=== PATIENT | female | born 1980 | race Caucasian/White ===

== ENCOUNTER 2019-09-12 06:29 | Day surgery (SDC) | payer OTHER ==
[~2019-09-12] VITALS: Ht 162.6 cm; Wt 118.4 kg
[2019-09-12] MEDS ORDERED: fentaNYL 0.05 MG/ML VIAL ONE (07:39)
[2019-09-12] MEDS ORDERED: MIDAZOLAM 2 MG/2 ML VIAL ONE (07:40)
[2019-09-12] MEDS ORDERED: MIDAZOLAM 2 MG/2 ML VIAL IVP ONE (08:30)
== END 2019-09-12 08:52 | disposition home or self-care (01) ==
LOC: MTU 06:29 → MOR 06:29
PROVIDERS: ATTEND Internal Medicine Gastroenterology
DX: R10.13 Epigastric pain (principal); K31.7 Polyp of stomach and duodenum; K22.70 Barrett's esophagus without dysplasia; K44.9 Diaphragmatic hernia without obstruction or gangrene; E66.01 Morbid (severe) obesity due to excess calories; Z88.0 Allergy status to penicillin; Z79.899 Other long term (current) drug therapy; Z68.44 Body mass index [BMI] 60.0-69.9, adult
CPT/HCPCS: 43239; 88305; 88312; 88313; J2250; J3010

== ENCOUNTER 2022-04-07 12:58 | Inpatient (IN) | payer OTHER ==
[~2022-04-07] VITALS: Ht 162.6 cm; Wt 88.5 kg
[2022-04-07 13:29] LABS: BASOPHILS % (AUTO) 0.6 % (0.0-2.0); EOSINOPHILS # (AUTO) 0.2 K/uL (0-0.4); EOSINOPHILS % (AUTO) 2.5 % (0.0-4.0); HEMATOCRIT 36.9 % (36-48); HEMOGLOBIN 12.5 g/dL (12.0-16.0); LYMPHOCYTES # (AUTO) 2.5 K/uL (2.5-16.5); LYMPHOCYTES % (AUTO) 37.9 % (20.5-51.1); MEAN CORPUSCULAR HEMOGLOBIN 32 pg (27-31); MEAN CORPUSCULAR HGB CONC 34 g/dL (33-37); MONOCYTES # (AUTO) 0.5 K/uL (0.8-1.0); MONOCYTES % (AUTO) 7.4 % (1.7-9.3); NEUTROPHILS # (AUTO) 3.5 K/uL (1.8-7.7); NEUTROPHILS % (AUTO) 51.6 % (42.2-75.2); PLATELET COUNT (AUTO) 368 K/uL (140-450); RED BLOOD CELL COUNT(AUTO) 3.93 MIL/uL (4.20-5.40); RED CELL DISTRIBUTION WIDTH 13.5 % (11.6-13.7); WHITE BLOOD COUNT (AUTO) 6.7 K/uL (4.8-10.8)
[2022-04-07 13:43] LABS: ANION GAP 13.6 (8-16); CREATININE 0.5 mg/dL (0.6-1.3); POTASSIUM 3.6 mmol/L (3.5-5.1)
[2022-04-07] MEDS ORDERED: LIDOCAINE/EPI MPF 1%1:200000 30 ML VIAL INJ ONE (14:54)
[2022-04-07] MEDS ORDERED: DEXAMETHASONE 4 MG/ML VIAL ONE (15:29)
[2022-04-07] MEDS ORDERED: KETOROLAC 30 MG/ML VIAL ONE (15:29)
[2022-04-07] MEDS ORDERED: PROPOFOL 200 MG/20 ML VIAL IV ONE (15:29)
[2022-04-07] MEDS ORDERED: SUCCINYLCHOLINE CHLORIDE 200 MG/10 ML VIAL IVP ONE (15:29)
[2022-04-07] MEDS ORDERED: ONDANSETRON 4 MG/2 ML VIAL ONE (15:29)
[2022-04-07] MEDS ORDERED: ROCURONIUM 50 MG/5 ML VIAL IV ONE ×2 (15:29→18:16)
[2022-04-07] MEDS ORDERED: MIDAZOLAM 2 MG/2 ML VIAL ONE (15:30)
[2022-04-07] MEDS ORDERED: DESFLURANE 240 ML BTL INH ONE (16:30)
[2022-04-07] MEDS ORDERED: fentaNYL citrate 0.05 MG/ML VIAL ONE (16:45)
[2022-04-07] MEDS ORDERED: CLINDAMYCIN 900 MG/6 ML VIAL IV ONE (16:48)
[2022-04-07] MEDS ORDERED: BUPIVACAINE-MPF 0.25% 30 ML VIAL INJ ONE (17:05)
[2022-04-07] MEDS ORDERED: HYDROmorphone PFS 2 MG/ML SYR ONE ×2 (17:16→18:41)
[2022-04-07] MEDS ORDERED: SUGAMMADEX SODIUM 200 MG/2 ML VIAL IV ONE (20:30)
[2022-04-07] MEDS ORDERED: ONDANSETRON 4 MG/2 ML VIAL IVP PRN (20:55)
[2022-04-07] MEDS ORDERED: MORPHINE SULFATE 5 MG/ML VIAL IVP PRN (20:55)
[2022-04-07] MEDS ORDERED: diphenhydrAMINE 50 MG/ML VIAL IVP PRN (20:55)
[2022-04-07] MEDS ORDERED: HYDROmorphone 1 MG/ML AMP IVP PRN (20:55)
[2022-04-07] MEDS ORDERED: oxyCODONE/APAP 5/325 MG 1 TAB TAB PO PRN (20:55)
[2022-04-07 21:55] VITALS: BP 118/64
--- NOTE | 2022-04-07 21:55 | NUR ---
RECEIVED REPORT FROM OR NURSE, PATIENT IS LYING ON BED, PATIENT IS STILL IN UNDER ANESTHESIA , PATIENT IS NON VARIBEL AT THIS TIME, VITAL SIGN IS WITHIN THE NORMAL RANGE ,NO ACTIVE BLEEDING FROM SURGERY SITE ,CALL LIGHT IS WITHIN THE REACH ,WILL CONTINUE TO MONITOR PATIENT,
[2022-04-07] MEDS: ONDANSETRON 4 MG/2 ML VIAL IVP PRN (22:20)
--- NOTE | 2022-04-07 22:23 | NUR ---
PATIENT IS COMPLAINING OF NAUSEA , ZOFRAN IV PRN GIVEN PER DOCTOR ORDER, CALL LIGHT IS WITHIN THE REACH , WILL CONTINUE TO MONITOR PATIENT
--- NOTE | 2022-04-07 22:35 | NUR ---
spoke with dr perla, pt on topiramate 100mg twice a day and Aptiom 400mg daily at night, per Dr Perla to continue meds.policy writer typist already ordered topiramate, phone call made to pharmacy , spoke with Mahendra, he said we don't carry that medication and to order non formulary for that said medication but it wont be verified by him tonight, it will be the hospital pharmacist.spoke with pt and pts family who is still at bedside that we dont carry Aptiom and to bring the medication in am.she said ok.
[2022-04-07] MEDS: LACTATED RINGERS 1,000 ML IV SCH (23:16)
--- NOTE | 2022-04-07 23:40 | NUR ---
VERIFIED TO [facility] : PT IS MS PT.- ACCORDING TO DR. HUDDLESTON .
[2022-04-08] MEDS: KETOROLAC 30 MG/ML VIAL IVP SCH ×4 (00:52→18:01)
--- NOTE | 2022-04-08 01:02 | NUR ---
PATIENT IS LYING ON BED,PATIENT IS COMPLAINING OF PAIN AT SURGERY SITE, SCHEDULE PAIN MEDICATION IS GIVEN PER DOCTOR ORDER, VITAL SIGN IS WITHIN THE NORMAL RANGE,CALL LIGHT IS WITHIN THE REACH, WILL CONTINUE TO MONITOR PATIENT.
--- NOTE | 2022-04-08 01:14 | NUR ---
RECEIVED REPORT FROM ER NURSE PAT, PATIENT IS LYING ON BED,PATIENT IS ALERT ORIENTED X4 ,PATIENT SPEAK KAZAKH, CALL LIGHT IS WITHIN THE REACH,WILL CONTINUE TO MONITOR PATIENT. Addendum: 04/08/22 at 0118 by Elizabeth Farley RN DOCUMENTS IN WRONG PATIENT
[2022-04-08] MEDS: oxyCODONE/APAP 5/325 MG 1 TAB TAB PO PRN ×2 (03:22→10:22)
--- NOTE | 2022-04-08 03:28 | NUR ---
PATIENT IS COMPLAINING OF PAIN 6/10 , GAVE OXYCODONE 5/325 MG PO PRN PER DOCTOR ORDER, VITAL SIGN IS WITHIN THE NORMAL RANGE, CALL LIGHT IS WITHIN THE REACH,WILL CONTINUE TO MONITOR PATIENT.
--- NOTE | 2022-04-08 03:38 | NUR ---
APTIOM 400MG ( PT'S MED FOR S2 ) WILL TELL TO ATUL TO ENDORSE IT TO AM NURSE AND IN HOUSE PHARMACIST
[2022-04-08 04:00] VITALS: BP 107/64
--- NOTE | 2022-04-08 04:40 | NUR ---
PATIENT IS LYING ON BED, NO ANY COMPLAIN OF PAIN OR SHORTNESS OF BREATH AT THIS TIME, VITAL SIGN IS WITHIN THE NORMAL RANGE, CALL LIGHT IS WITHIN THE REACH,WILL CONTINUE TO MONITOR PATIENT.
[2022-04-08] MEDS: LACTATED RINGERS 1,000 ML IV SCH ×3 (05:16→18:50)
--- NOTE | 2022-04-08 06:23 | NUR ---
PATIENT IS LYING ON BED, ALL SCHEDULE MEDICATION IS GIVEN PER DOCTOR ORDER, VITAL SIGN IS WITHIN THE NORMAL RANGE, CALL LIGHT IS WITHIN THE REACH,WILL CONTINUE TO MONITOR PATIENT.
--- NOTE | 2022-04-08 06:44 | NUR ---
PATIENT HAS BEEN SCREENED AND CATEGORIZED HIGH NUTRITION RISK. PATIENT WILL BE SEEN WITHIN 1-2 DAYS OF ADMISSION. 04/08/22-04/09/22 MICAH JO MS, RDN
--- NOTE | 2022-04-08 07:10 | NUR ---
RECEIVED REPORT FROM TIRE CORD WEAVER NURSE FOR CONTINUITY OF CARE. PATIENT AWAKE NO DISTRESS NOTED. IV SITE ON RIGHT HAND LY 20 RUNNING LR AT 150.. PATIENT ALERT AND ORIENTED. RESPIRATION EVEN AND NOT LABORED NO SHORTNESS OF BREATH ON ROOM AIR. VILLATORO CATHETER DRAINING WELL WITH YELLOW URINE NO HEMATURIA. ALL SAFETY MEASURE IN PLACE.
--- NOTE | 2022-04-08 07:14 | NUR ---
GAVE REPORT TO MORNING NURSE DESIRAE FOR CONTINUOS OF CARE, PATIENT IS STABLE.
--- NOTE | 2022-04-08 08:00 | NUR ---
Patient's Plan of Care was discussed and reviewed with CUCA Muse
[2022-04-08] MEDS: TOPIRAMATE 100 MG TAB PO SCH ×2 (09:12→21:11)
--- NOTE | 2022-04-08 09:12 | NUR ---
GIVEN ORAL MEDICATION TOLERATED WELL.
--- NOTE | 2022-04-08 10:22 | NUR ---
PATIENT COMPLAIN 9/10 ABDOMINAL PAIN MEDICATED WITH PERCOCET 2 TABS. CALL LIGHT WITH IN EASY REACH.
--- NOTE | 2022-04-08 10:46 | NUR ---
LEFT MESSAGE TO DR. HUDDLESTON IF PATIENT CAN HAVE HER HOME MEDICATION ESPECIALLY HER SEIZURE MEDICATION. WAITING FOR RESPONSE.
--- NOTE | 2022-04-08 11:09 | NUR ---
(04/08/22) RD INITIAL ASSESSMENT COMPLETED PLEASE REFER TO NUTRITION ASSESSMENT UNDER CARE ACTIVITY FOR ESTIMATED NUTRITIONAL NEEDS. RD RECOMMENDATIONS: 1. CONTINUE ON REGULAR DIET TOLERATED. 2. RDN ADDED HEALTH SHAKES 1 CARTON WITH EACH MEAL; 900 KCAL AND [address] WILL F/U 3-5 DAYS; MODERATE RISK. MICAH JO MS, RDN
--- NOTE | 2022-04-08 11:24 | NUR ---
DR. HUDDLESTON RESPONDED AND HE SAID OKAY TO TAKE ALL HOME MEDICATION.
[2022-04-08 14:10] LABS: BASOPHILS % (AUTO) 0.2 % (0.0-2.0); EOSINOPHILS # (AUTO) 0.1 K/uL (0-0.4); EOSINOPHILS % (AUTO) 1.1 % (0.0-4.0); HEMATOCRIT 25.9 % (36-48); HEMOGLOBIN 8.8 g/dL (12.0-16.0); LYMPHOCYTES # (AUTO) 2.7 K/uL (2.5-16.5); LYMPHOCYTES % (AUTO) 34.4 % (20.5-51.1); MEAN CORPUSCULAR HEMOGLOBIN 32 pg (27-31); MEAN CORPUSCULAR HGB CONC 34 g/dL (33-37); MEAN CORPUSCULAR VOLUME 94.7 fL (80-94); MONOCYTES # (AUTO) 0.6 K/uL (0.8-1.0); MONOCYTES % (AUTO) 7.4 % (1.7-9.3); NEUTROPHILS # (AUTO) 4.4 K/uL (1.8-7.7); NEUTROPHILS % (AUTO) 56.9 % (42.2-75.2); PLATELET COUNT (AUTO) 265 K/uL (140-450); RED BLOOD CELL COUNT(AUTO) 2.73 MIL/uL (4.20-5.40); RED CELL DISTRIBUTION WIDTH 13.2 % (11.6-13.7); WHITE BLOOD COUNT (AUTO) 7.8 K/uL (4.8-10.8)
[2022-04-08 16:00] VITALS: BP 153/76
--- NOTE | 2022-04-08 16:43 | NUR ---
PATIENT ON BED RESTING WITH CALL LIGHT WITH IN EASY REACH NO DISTRESS AT THIS TIME. CALL LIGHT WITH IN EASY REACH.
--- NOTE | 2022-04-08 18:45 | NUR ---
Patient alert with visitor at bed side no distress noted. Patient verbalized passing gas already. Sigala catheter draining well no hematuria noted. Continue on pain medication. No sign and symptoms of infection.
--- NOTE | 2022-04-08 19:20 | NUR ---
GAVE REPORT TO ROOFER GYPSUM NURSE FOR CONTINUITY OF CARE.
--- NOTE | 2022-04-08 19:21 | NUR ---
RECEIVED ENDORSEMENT FROM CUCA MERRILL FOR CONTINUITY OF CARE. PATIENT IS AWAKE AND STABLE. A&OX4. VERBALLY RESPONSIVE AND ABLE TO COMMUNICATE NEEDS. ON ROOM AIR WITH NO APPARENT S/SX OF ACUTE DISTRESS. RESPIRATIONS EVEN AND UNLABORED WITH NO APPARENT S/SX OF ACUTE DISTRESS. IV ON RIGHT HAND 20G IS PATENT/INTACT WITH LR INFUSING AT 150 ML/HR. PATIENT'S SKIN IS INTACT. PATIENT HAS F/C IN PLACE. DR. HUDDLESTON AT BEDSIDE. PER DR. HUDDLESTON, DC F/C AND OBSERVE FOR URINATION AFTER 4 HOURS. IF PATIENT HAS NOT VOIDED AFTER 4 HOURS, PERFORM A BLADDER SCAN. PER DR. HUDDLESTON, LR AT 150 ML/HR WILL BE DC'D IF PATIENT IS ABLE TO TOLERATE PO FOOD. PLAN OF CARE AND WHITE COMMUNICATION BOARD UPDATED. ALL SAFETY MEASURES IN PLACE. BED IN LOW/LOCKED POSITION. CALL LIGHT WITHIN REACH. WILL CONTINUE TO MONITOR.
[2022-04-08 20:00] VITALS: BP 148/80
--- NOTE | 2022-04-08 20:00 | NUR ---
REVIEWED CARE PLAN WITH CUCA VALDIVIA. CHEMO
--- NOTE | 2022-04-08 20:20 | NUR ---
REMOVED PATIENT'S F/C PER DR. HUDDLESTON'S ORDER. TOLERATED WELL. WILL AMBULATE PATIENT IN AN HOUR TO PROMOTE BODY MOVEMENT. PATIENT VERBALIZED UNDERSTANDING THAT BLADDER SCAN WILL NEED TO BE PERFORMED IF SHE HAS NOT VOIDED WITHIN 4 HOURS. MEDICATED PATIENT PER MD ORDER. TOLERATED WELL. PATIENT IS C/O 9/10 SEVERE PAIN. PER PATIENT, SHE CAN NO LONGER TAKE ANY IBUPROFEN DERIVATIVES PAIN MEDS DUE TO BARIATRIC SURGERY. WILL ENDORSE IV MORPHINE PRN TO VANESA WINKLER FOR COVERAGE. ALL SAFETY MEASURES IN PLACE. CALL LIGHT WITHIN REACH. WILL CONTINUE TO MONITOR.
[2022-04-08] MEDS: MORPHINE SULFATE 4 MG/ML SYR IVP PRN (20:51)
--- NOTE | 2022-04-08 21:30 | NUR ---
ASSISTED PATIENT WITH AMBULATION. TOLERATED WELL. PATIENT WAS ABLE TO AMBULATE TO THE BR AND REPORTED SHE WAS ABLE TO VOID. PATIENT REPORTS A TOLERABLE PAIN LEVEL OF 2/10. ASSISTED PATIENT BACK TO BED. CHANGED ABSORBENT PADS ON BED. ALL SAFETY MEASURES IN PLACE. BED IN LOW/LOCKED POSITION. CALL LIGHT WITHIN REACH. WILL CONTINUE TO MONITOR.
--- NOTE | 2022-04-09 01:00 | NUR ---
CHECKED PATIENT. PATIENT IS STABLE AND ASLEEP. CHEST IS RISING AND FALLING EVENLY. RESPIRATIONS EVEN AND UNLABORED WITH NO APPARENT S/SX OF ACUTE DISTRESS. WHITE COMMUNICATION BOARD UPDATED. ALL SAFETY MEASURES IN PLACE. BED IN LOW/LOCKED POSITION. CALL LIGHT WITHIN REACH. WILL CONTINUE TO MONITOR.
[2022-04-09] MEDS: LACTATED RINGERS 1,000 ML IV SCH ×2 (01:31→08:55)
[2022-04-09] MEDS: MORPHINE SULFATE 4 MG/ML SYR IVP PRN ×2 (02:59→09:23)
--- NOTE | 2022-04-09 03:11 | NUR ---
PATIENT C/O 06/21 ABD PAIN. ENDORSED TO PETERSON ALEXIS FOR IV PRN COVERAGE. RESPIRATIONS EVEN AND UNLABORED WITH NO APPARENT S/SX OF ACUTE DISTRESS. WHITE COMMUNICATION BOARD UPDATED. ALL SAFETY MEASURES IN PLACE. CALL LIGHT WITHIN REACH. WILL CONTINUE TO MONITOR.
[2022-04-09 04:00] VITALS: BP 128/79
--- NOTE | 2022-04-09 05:00 | NUR ---
PATIENT IS SLEEPING COMFORTABLY AND STABLE. CHEST IS RISING AND FALLING EVENLY. RESPIRATIONS EVEN AND UNLABORED WITH NO APPARENT S/SX OF ACUTE DISTRESS. ALL NEEDS MET. WHITE COMMUNICATION BOARD UPDATED. ALL SAFETY MEASURES IN PLACE. BED IN LOW/LOCKED POSITION. CALL LIGHT WITHIN REACH. WILL CONTINUE TO MONITOR.
[2022-04-09] MEDS: KETOROLAC 30 MG/ML VIAL IVP SCH ×2 (05:01)
--- NOTE | 2022-04-09 06:40 | NUR ---
PATIENT NOTICED BLUE STRING HANGING OUTSIDE HER VAGINA. PATIENT IS WORRIED BECAUSE SHE FEELS PAIN WHEN SHE TUGS ON THE BLUE STRING. CONTACTED DR. HUDDLESTON. PER DR. HUDDLESTON, BLUE STRING IS PART OF VAGINAL PACKING. DR. HUDDLESTON STATED HE IS ON HIS WAY TO REMOVE VAGINAL PACKING TODAY. EDUCATED PATIENT AND SHE FELT RELIEF.
--- NOTE | 2022-04-09 07:05 | NUR ---
ENDORSED PATIENT TO PETERSON CENTENO FOR CONTINUITY OF CARE. PATIENT IS STABLE.
--- NOTE | 2022-04-09 07:20 | NUR ---
RECEIVED REPORT FROM NIGHTSHIFT NURSE FOR CONTINUITY OF CARE. DISCUSSED PLAN OF CARE, PT STABLE CONDITION, ALERT AND AWAKE. A/OX4, BREATHING EVEN, REGULAR, AND UNLABORED ON RA. PT AMBULATORY, CONTINENT OF THE BOWEL AND BLADDER. SKIN WARM, DRY, SURGICAL INCISIONS INTACT. IV CLEAN, DRY, AND PATENT. PT DENIES PAIN AT THIS TIME.
--- NOTE | 2022-04-09 08:35 | NUR ---
DR. HUDDLESTON AT THE BEDSIDE. VAGINAL PACKING REMOVED, PACKING INTACT. PT TOLERATED WELL.
[2022-04-09] MEDS: TOPIRAMATE 100 MG TAB PO SCH (09:23)
[2022-04-09] MEDS: ONDANSETRON 4 MG/2 ML VIAL IVP PRN (09:24)
--- NOTE | 2022-04-09 09:24 | NUR ---
PT WAS GIVEN MORPHINE ORDERED FOR PAIN ON A SCALE OF 10/10. PER DR. HUDDLESTON ITS OKAY TO GIVE BEFORE DISCHARGE BECAUSE THEY REMOVED THE SURGICAL PACKING. ZOFRAN ALSO GIVEN FOR NAUSEA. WILL CONTINUE TO MONITOR.
[2022-04-09 10:45] VITALS: BP 100/59
--- NOTE | 2022-04-09 11:50 | NUR ---
PICTURES OF WOUND WAS TAKEN ON THE ABD AND PLACED IN THE CHART.
--- NOTE | 2022-04-09 11:50 | NUR ---
HOME MEDICATION APTIOM WERE TAKEN FROM THE PHARMACY AND GIVEN TO PT.
--- NOTE | 2022-04-09 11:50 | NUR ---
PT DISCHARGED. PT WAS GIVEN DISCHARGE INSTRUCTIONS FOR S/P HYSTERECTOMY, INCISION CARE, AND F/U WITH PCP WITHIN 7 DAYS. PT VERBALIZED UNDERSTANDING, AND SIGNED ALL REQUIRED FORMS. PT IN STABLE CONDITION, IV WAS REMOVED AND DRESSED, BELONGINGS AND HOME MEDICATION RECONCILED. PICTURES WERE TAKEN OF SURGICAL INCISIONS. PT DENIES ANY PAIN, PT WAS ESCORTED TO POV VIA WHEELCHAIR.
== END 2022-04-09 12:10 | disposition home or self-care (01) | DRG 513 ==
LOC: MMU 12:58 → MTU 20:00
PROVIDERS: ADMIT Obstetrics & Gynecology; ATTEND Obstetrics & Gynecology
PROC: 0USG4ZZ Reposition Vagina, Percutaneous Endoscopic Approach (ICD-10-PCS; 2022-04-07)
PROC: 0TSD4ZZ Reposition Urethra, Percutaneous Endoscopic Approach (ICD-10-PCS; principal; 2022-04-07 15:00)
PROC: 0UT74ZZ Resection of Bilateral Fallopian Tubes, Percutaneous Endoscopic Approach (ICD-10-PCS; 2022-04-07 15:00)
PROC: 0UT94ZZ Resection of Uterus, Percutaneous Endoscopic Approach (ICD-10-PCS; 2022-04-07 15:00)
DX: N81.2 Incomplete uterovaginal prolapse (principal); D62 Acute posthemorrhagic anemia; N39.3 Stress incontinence (female) (male); N83.8 Other noninflammatory disorders of ovary, fallopian tube and broad ligament; N93.9 Abnormal uterine and vaginal bleeding, unspecified; Z20.822 Contact with and (suspected) exposure to COVID-19
CPT/HCPCS: 36415; 80048; 81025; 85025; 86886; 86900; 86901; 87081; J0330; J1100; J1170; J1885; J2001; J2250; J2270; J2405; J2704; J3010; J3490

== ENCOUNTER 2022-08-04 06:44 | Day surgery (SDC) | payer OTHER ==
[~2022-08-04] VITALS: Ht 162.6 cm; Wt 78.0 kg
[2022-08-04] MEDS ORDERED: fentaNYL citrate 0.05 MG/ML VIAL ONE (08:08)
[2022-08-04] MEDS ORDERED: LIDOCAINE 2% 100 MG/5 ML UJET TP ONE (08:08)
[2022-08-04] MEDS ORDERED: MIDAZOLAM 5 MG/5 ML VIAL ONE (08:08)
[2022-08-04] MEDS ORDERED: MIDAZOLAM 5 MG/5 ML VIAL IV ONE (09:50)
[2022-08-04] MEDS ORDERED: fentaNYL citrate 0.05 MG/ML VIAL IVP ONE (09:50)
== END 2022-08-04 09:55 | disposition home or self-care (01) ==
LOC: MOR 06:44 → MMU 06:44 → MOR 09:55
PROVIDERS: ATTEND Internal Medicine Gastroenterology
DX: Z12.11 Encounter for screening for malignant neoplasm of colon (principal); K21.9 Gastro-esophageal reflux disease without esophagitis; K92.1 Melena; K44.9 Diaphragmatic hernia without obstruction or gangrene; K22.70 Barrett's esophagus without dysplasia; Z98.84 Bariatric surgery status; Z20.822 Contact with and (suspected) exposure to COVID-19; Z90.710 Acquired absence of both cervix and uterus; Z79.899 Other long term (current) drug therapy
CPT/HCPCS: 43235; 45378; 87426; J2250; J3010

== ENCOUNTER 2023-03-13 09:06 | Day surgery (SDC) | payer OTHER ==
[~2023-03-13] VITALS: Ht 162.6 cm; Wt 73.0 kg
[2023-03-13 10:54] LABS: BASOPHILS # (AUTO) 0.1 K/uL (0.00-0.22); BASOPHILS % (AUTO) 1.1 % (0.0-2.0); EOSINOPHILS # (AUTO) 0.3 K/uL (0-0.4); EOSINOPHILS % (AUTO) 4.7 % (0.0-4.0); HEMATOCRIT 34.7 % (36-48); HEMOGLOBIN 11.7 g/dL (12.0-16.0); LYMPHOCYTES # (AUTO) 2.3 K/uL (2.5-16.5); LYMPHOCYTES % (AUTO) 41.7 % (20.5-51.1); MEAN CORPUSCULAR HEMOGLOBIN 31 pg (27-31); MEAN CORPUSCULAR HGB CONC 34 g/dL (33-37); MONOCYTES # (AUTO) 0.4 K/uL (0.8-1.0); MONOCYTES % (AUTO) 7.3 % (1.7-9.3); NEUTROPHILS # (AUTO) 2.5 K/uL (1.8-7.7); NEUTROPHILS % (AUTO) 45.2 % (42.2-75.2); PLATELET COUNT (AUTO) 331 K/uL (140-450); RED BLOOD CELL COUNT(AUTO) 3.73 MIL/uL (4.20-5.40); RED CELL DISTRIBUTION WIDTH 13.3 % (11.6-13.7); WHITE BLOOD COUNT (AUTO) 5.5 K/uL (4.8-10.8)
[2023-03-13 11:07] LABS: ALBUMIN 3.6 g/dL (3.4-5.0); ANION GAP 11.7 (8-16); CARBON DIOXIDE 24.2 mmol/L (21-32); POTASSIUM 3.9 mmol/L (3.5-5.1); TOTAL BILIRUBIN 0.2 mg/dL (0.0-1.0)
[2023-03-13] MEDS ORDERED: CLINDAMYCIN 900 MG/6 ML VIAL IV ONE (11:56)
[2023-03-13] MEDS ORDERED: BUPIVACAINE-MPF/EPI 0.5% 30 ML VIAL INJ ONE (11:56)
[2023-03-13] MEDS ORDERED: CONJUGATED ESTROGENS VAG CREAM 42 GM TUBE VG SCH (12:05)
[2023-03-13] MEDS ORDERED: PROPOFOL 200 MG/20 ML VIAL IV ONE (12:25)
[2023-03-13] MEDS ORDERED: SEVOFLURANE 250 ML BTL INH ONE (12:25)
[2023-03-13] MEDS ORDERED: fentaNYL citrate 0.05 MG/ML VIAL ONE (12:41)
[2023-03-13] MEDS ORDERED: SUCCINYLCHOLINE CHLORIDE 200 MG/10 ML VIAL IVP ONE (13:16)
[2023-03-13] MEDS ORDERED: SUGAMMADEX SODIUM 200 MG/2 ML VIAL IV ONE (13:16)
[2023-03-13] MEDS ORDERED: ROCURONIUM 50 MG/5 ML VIAL IV ONE (13:17)
[2023-03-13] MEDS ORDERED: ONDANSETRON 4 MG/2 ML VIAL ONE (13:17)
[2023-03-13] MEDS ORDERED: KETOROLAC 30 MG/ML VIAL ONE (13:17)
[2023-03-13] MEDS ORDERED: LABETALOL 20 MG/4 ML VIAL IVP PRN (13:48)
[2023-03-13] MEDS ORDERED: METOCLOPRAMIDE 10 MG/2 ML INJ VIAL IVP PRN (13:48)
[2023-03-13] MEDS ORDERED: hydrALAZINE 20 MG/ML VIAL IVP PRN (13:49)
[2023-03-13] MEDS ORDERED: LACTATED RINGERS 1,000 ML IV SCH (13:50)
[2023-03-13] MEDS: HYDROmorphone 1 MG/ML AMP IVP PRN ×4 (17:30→18:00)
[2023-03-13] MEDS ORDERED: HYDROmorphone PFS 2 MG/ML SYR ONE (17:33)
== END 2023-03-13 18:20 | disposition home or self-care (01) ==
LOC: MDS 09:06 → MMU 09:07 → MDS 18:20
PROVIDERS: ATTEND Obstetrics & Gynecology
DX: N81.6 Rectocele (principal); N76.0 Acute vaginitis; B96.89 Other specified bacterial agents as the cause of diseases classified elsewhere; N94.10 Unspecified dyspareunia; N95.1 Menopausal and female climacteric states; E78.5 Hyperlipidemia, unspecified; Z90.710 Acquired absence of both cervix and uterus; Z98.84 Bariatric surgery status; Z79.899 Other long term (current) drug therapy
CPT/HCPCS: 36415; 57250; 80053; 85025; 86886; 86900; 86901; J0330; J1170; J1885; J2405; J2704; J3010; J3490

== ENCOUNTER 2023-11-02 01:08 | Emergency (ER) | payer OTHER ==
[~2023-11-02] VITALS: Ht 162.6 cm; Wt 65.8 kg
[2023-11-02 01:18] VITALS: BP 134/70; PULSE 74; RESP 16; TEMP 98.5; O2SAT 99
[2023-11-02] MEDS ORDERED: NACL 0.9% 1,000 ML IV ONE (02:05)
[2023-11-02 02:17] LABS: BASOPHILS # (AUTO) 0.1 K/uL (0.00-0.22); BASOPHILS % (AUTO) 0.8 % (0.0-2.0); EOSINOPHILS # (AUTO) 0.3 K/uL (0-0.4); EOSINOPHILS % (AUTO) 4.1 % (0.0-4.0); HEMOGLOBIN 10.9 g/dL (12.0-16.0); LYMPHOCYTES # (AUTO) 3.1 K/uL (2.5-16.5); LYMPHOCYTES % (AUTO) 48.4 % (20.5-51.1); MEAN CORPUSCULAR HEMOGLOBIN 32 pg (27-31); MEAN CORPUSCULAR HGB CONC 34 g/dL (33-37); MEAN CORPUSCULAR VOLUME 92.9 fL (80-94); MONOCYTES # (AUTO) 0.6 K/uL (0.8-1.0); MONOCYTES % (AUTO) 8.8 % (1.7-9.3); NEUTROPHILS # (AUTO) 2.4 K/uL (1.8-7.7); NEUTROPHILS % (AUTO) 37.9 % (42.2-75.2); PLATELET COUNT (AUTO) 308 K/uL (140-450); RED BLOOD CELL COUNT(AUTO) 3.44 MIL/uL (4.20-5.40); RED CELL DISTRIBUTION WIDTH 14.3 % (11.6-13.7); WHITE BLOOD COUNT (AUTO) 6.4 K/uL (4.8-10.8)
[2023-11-02] MEDS ORDERED: FAMOTIDINE 20 MG/2 ML VIAL IVP ONE (02:25)
[2023-11-02] MEDS ORDERED: ONDANSETRON 4 MG/2 ML VIAL IVP ONE (02:25)
[2023-11-02 02:41] LABS: ALANINE AMINOTRANSFERASE 19 U/L (12-78); ALBUMIN 3.3 g/dL (3.4-5.0); ALKALINE PHOSPHATASE 71 U/L (50-136); ANION GAP 11.5 (8-16); ASPARTATE AMINOTRANSFERASE 12 U/L (15-37); CALCIUM 8.6 mg/dL (8.5-10.1); CARBON DIOXIDE 25.4 mmol/L (21-32); CHLORIDE 108 mmol/L (98-107); CREATININE 0.7 mg/dL (0.6-1.3); GFR ARICAN-AMERICAN 116 mL/min (>90); GFR NON ARICAN-AMERICAN 96 mL/min (>90); GLUCOSE 94 mg/dL (74-106); LIPASE 23 U/L (16-77); POTASSIUM 3.9 mmol/L (3.5-5.1); SODIUM SERUM 141 mmol/L (136-145); TOTAL BILIRUBIN 0.2 mg/dL (0.0-1.0); TOTAL PROTEIN, SERUM 6.7 g/dL (6.4-8.2); UREA NITROGEN, BLOOD 15 mg/dL (7-18)
[2023-11-02] MEDS ORDERED: FERR325E14 PO (03:29)
[2023-11-02 03:35] VITALS: BP 134/70; PULSE 74; RESP 16; TEMP 98.5; O2SAT 99
== END 2023-11-02 03:35 | disposition home or self-care (01) ==
LOC: MED 01:08
DX: R55 Syncope and collapse (principal); D64.9 Anemia, unspecified; R47.81 Slurred speech; Z79.899 Other long term (current) drug therapy
CPT/HCPCS: 36415; 70450; 80053; 81002; 81025; 83690; 84484; 85025; 93005; 96365; 96375; 99285; J2405; J3490; J7030